=== PATIENT | male | born 1955 | race American Indian/Alaskan Native ===

== ENCOUNTER 2019-12-20 06:30 | Day surgery (SDC) | payer BC ==
[2019-12-17 09:46] LABS: Hematocrit 47.3 % (35.5-45.6); Hemoglobin 16.3 gm/dl (11.8-15.2); Mean Corpuscular HGB Conc 35 % (32-34); Mean Corpuscular Volume 92 fl (84-94); Platelet Count 227 K/mm3 (140-440); Red Blood Count 5.15 M/mm3 (3.65-5.03); Red Cell Distribution Width 12.8 % (13.2-15.2)
[2019-12-17 10:02] LABS: Alanine Aminotransferase 27 units/L (7-56); Albumin 3.9 g/dL (3.9-5); BUN/Creatinine Ratio 16; Blood Urea Nitrogen 13 mg/dL (9-20); Calcium 9.4 mg/dL (8.4-10.2); Hemolysis Index 8
[~2019-12-20 06:30] MED LIST: BACTERIOSTATIC SODIUM CHLORIDE 0.9% 30 ML VIAL INFILTRATI ONE; LACTATED RINGERS 1,000 ML IV SCH; MIDAZOLAM 2 MG/2 ML INJ IV NR
[2019-12-20] MEDS ORDERED: ceFAZolin/STERILE WATER 2 GM/20 ML SYRINGE IV NR (07:22)
[2019-12-20] MEDS ORDERED: fentaNYL 100 MCG/2 ML INJ IV PRN (07:23)
--- NOTE | 2019-12-20 07:23 | Anesthesia Day of Surgery ---
Anesthesia Day of Surgery - Day of Surgery Patient Examined: Yes Patient H&P Reviewed: Yes Patient is NPO: Yes
--- NOTE | 2019-12-20 07:23 | Anesthesia Consultation ---
Anesthesia Consult and Med Hx Date of service: 12/20/19 - Airway Anesthetic Teeth Evaluation: Good, Bridges ROM Head & Neck: Adequate Mental/Hyoid Distance: Adequate Mallampati Class: Class III Intubation Access Assessment: Possibly Difficult - Pulmonary Exam CTA: Yes - Cardiac Exam Cardiac Exam: RRR - Pre-Operative Health Status ASA Pre-Surgery Classification: ASA2 Proposed Anesthetic Plan: General - Pulmonary Hx Smoking: No Hx Respiratory Symptoms: No Hx Sleep Apnea: No (RACHEL PRE SCREEN HIGH RISK) - Cardiovascular System Hx Hypertension: Yes (took amlodipine and atenolol this morning) Hx Heart Attack/AMI: No Hx Percutaneous Transluminal Coronary Angioplasty (PTCA): No - Central Nervous System CVA: No - Gastrointestinal Hx Gastroesophageal Reflux Disease: No - Endocrine Hx Renal Disease: No Hx Liver Disease: No Hx Insulin Dependent Diabetes: No Hx Non-Insulin Dependent Diabetes: No Hx Thyroid Disease: No - Hematic Hx Anemia: No - Other Systems Hx Obesity: Yes (BMI 34) - Additional Comments Anesthesia Medical History Comments: No hx anesthetic complications.
[2019-12-20] MEDS ORDERED: LIDOCAINE MPF (2%) 20 MG/1 ML VIAL 5 ML ONE (07:39)
[2019-12-20] MEDS ORDERED: dexAMETHasone 20 MG/5 ML VIAL ONE (07:39)
[2019-12-20] MEDS ORDERED: ONDANSETRON 4 MG/2 ML INJ ONE (07:39)
[2019-12-20] MEDS ORDERED: fentaNYL 100 MCG/2 ML INJ ONE (07:40)
[2019-12-20] MEDS ORDERED: propofoL 200 MG/20 ML VIAL IV ONE (07:40)
[2019-12-20] MEDS ORDERED: WATER FOR IRRIG STERILE 2000 ML IR ONE (09:00)
[2019-12-20] MEDS ORDERED: ePHEDrine SULFATE 50 MG/1 ML INJ ONE (09:01)
[2019-12-20] MEDS ORDERED: FUROSEMIDE 40 MG/4 ML INJ ONE (09:14)
[2019-12-20] MEDS ORDERED: LACTATED RINGERS 1,000 ML ONE (09:15)
--- NOTE | 2019-12-20 10:06 | Operative Report ---
PREOPERATIVE DIAGNOSIS: Bladder outlet obstruction, very elevated median bar with a bladder stones. POSTOPERATIVE DIAGNOSES: Bladder outlet obstruction, very elevated median bar with a bladder stones. PROCEDURE: Cystoscopy, cystolithotripsy, and resume therapy. SURGEON: Dr. Ryan. ANESTHESIA: General. FINDINGS: This is a gentleman who has bladder outlet obstruction, difficulty voiding with bladder stones. He now presents for treatment. DESCRIPTION OF PROCEDURE: The patient was brought to the operating room and placed on the operating table. Following induction of anesthesia, placed in lithotomy position, prepped and draped in usual sterile fashion. Cystourethroscopy showed a very elevated bladder neck. It was even hard to get into the bladder. The lateral lobes were not that enlarged and long, measuring approximately 3.5 cm at the maximum. Once we got in the bladder, we saw bunch of bladder stones, which were lasered. We evacuated them out with the Ellik. Once that was done was calibrated and placed. We did one injection right of the midline and then 1 in each lateral lobe. The patient tolerated the procedure well. A Councill catheter was placed without difficulty. He was brought to recovery room in stable condition. JOB# [id number] NANCY/AUGUSTINE
--- NOTE | 2019-12-20 10:53 | Post Operative Note ---
Date of procedure: 12/20/19 Pre-op diagnosis: stones bph Post-op diagnosis: same Findings: as above Procedure: rezum cystolithtomy Anesthesia: GETA Surgeon: RASHAD RAMIREZ Estimated blood loss: none Pathology: list (stone s) Condition: stable Disposition: PACU
--- NOTE | 2019-12-20 10:54 | Discharge Summary ---
Short Stay Discharge Plan Activity: other (no straining ) Weight Bearing Status: Full Weight Bearing Diet: low fat, low cholesterol, low salt Special Instructions: other (inc fluids ) Durable Medical Equipment Needed Upon Discharge: other (home with catheter ) Additional Instructions: ACTIVITY - NO STRENUOUS ACTIVITY. DIET - LOW FAT, LOW SALT, LOW CHOLESTEROL. DO INCREASE ORAL FLUIDS - ABOUT 8 CUPS OF WATER PER DAY. APPOINTMENT - CALL DR RAMIREZ OFFICE FOR FOLLOW UP CARE AND FOR ANY QUESTIONS OR CONCERNS RELATED TO YOUR PROCEDURE. Follow up with: NASIMA MISTRY MD [Primary Care Provider] - 7 Days RASHAD RAMIREZ MD [Staff Physician] - 7 Days Forms: Outpatient Surgery DC Inst.
[2019-12-20 11:25] VITALS: BP 130/79
--- NOTE | 2019-12-20 12:46 | Post Anesthesia Evaluation ---
- Post Anesthesia Evaluation Patient Participated: Yes Airway Patent: Yes Stable Respiratory Function: Yes Nausea/Vomiting: No Temp > 96.8F: Yes Pain Manageable: Yes Adequeate Hydration: Yes Anesthesia Complications: No
--- NOTE | 2019-12-20 14:54 | XRay Report ---
INTRAOPERATIVE FLUOROSCOPY: BLADDER STONE INDICATION: BLADDER STONE. TECHNIQUE: Intraoperative spot images were obtained during the procedure. FINDINGS: Fluoroscopic guidance was utilized. See procedure note for details. Fluoroscopy Time: 7 seconds. Fluoroscopy Images: 2. Signer Name: James Casper MD Signed: 12/20/2019 2:49 PM Workstation Name: [id number]
== END 2019-12-20 06:31 | disposition home or self-care (01) ==
LOC: OR 06:30
PROVIDERS: ATTEND Urology
DX: N21.0 Calculus in bladder (principal); N32.0 Bladder-neck obstruction; Z20.828 Contact with and (suspected) exposure to other viral communicable diseases; N32.89 Other specified disorders of bladder; I10 Essential (primary) hypertension; E66.9 Obesity, unspecified; Z79.899 Other long term (current) drug therapy; Z79.82 Long term (current) use of aspirin; Z98.890 Other specified postprocedural states; Z68.34 Body mass index [BMI] 34.0-34.9, adult; Z87.442 Personal history of urinary calculi
CPT/HCPCS: 36415; 52318; 53854; 74018; 80053; 85027; A4217; C1769; J0690; J1100; J1940; J2250; J2405; J2704; J3010; J7120; U0003